=== PATIENT | female | born 1990 | race Caucasian/White ===

== ENCOUNTER 2021-08-04 09:08 | Outpatient (CLI) | payer OTHER ==
[2021-08-04 10:20] LABS: BASOPHILS % (AUTO) 0.3 % (0.0-2.0); EOSINOPHILS # (AUTO) 0.2 K/uL (0.0-0.4); EOSINOPHILS % (AUTO) 2.1 % (0.0-4.0); HEMATOCRIT 33.7 % (36-48); HEMOGLOBIN 11.3 g/dL (12.0-16.0); LYMPHOCYTES # (AUTO) 2.2 K/uL (1.0-5.5); LYMPHOCYTES % (AUTO) 25.4 % (20.5-51.5); MEAN CORPUSCULAR HEMOGLOBIN 29 pg (27-31); MEAN CORPUSCULAR HGB CONC 33 % (32-36); MEAN CORPUSCULAR VOLUME 86 fL (79.0-98.0); MONOCYTES # (AUTO) 0.7 K/uL (0.0-1.0); NEUTROPHILS # (AUTO) 5.6 K/uL (1.8-7.7); NEUTROPHILS % (AUTO) 64.2 % (40.0-70.0); PLATELET COUNT (AUTO) 255 K/uL (130-430); RED BLOOD CELL COUNT(AUTO) 3.94 MIL/uL (4.2-6.2); RED CELL DISTRIBUTION WIDTH 14.1 % (9.0-15.0); WHITE BLOOD COUNT (AUTO) 8.7 K/uL (4.8-10.8)
== END 2021-08-04 19:29 | disposition home or self-care (01) ==
LOC: SLB 09:08
PROVIDERS: ATTEND Specialist
DX: Z34.92 Encounter for supervision of normal pregnancy, unspecified, second trimester (principal); Z3A.00 Weeks of gestation of pregnancy not specified
CPT/HCPCS: 36415; 84443; 85025; 86592; 86886; 86900; 86901; 87086

== ENCOUNTER 2021-10-29 08:33 | Outpatient (CLI) | payer OTHER ==
[2021-10-29 09:36] LABS: BASOPHILS % (AUTO) 0.5 % (0.0-2.0); EOSINOPHILS # (AUTO) 0.2 K/uL (0.0-0.4); EOSINOPHILS % (AUTO) 1.8 % (0.0-4.0); HEMATOCRIT 32.4 % (36-48); LYMPHOCYTES # (AUTO) 2.4 K/uL (1.0-5.5); LYMPHOCYTES % (AUTO) 26.8 % (20.5-51.5); MEAN CORPUSCULAR HEMOGLOBIN 30 pg (27-31); MEAN CORPUSCULAR HGB CONC 34 % (32-36); MEAN CORPUSCULAR VOLUME 88 fL (79.0-98.0); MONOCYTES # (AUTO) 0.8 K/uL (0.0-1.0); MONOCYTES % (AUTO) 8.9 % (1.7-9.3); NEUTROPHILS # (AUTO) 5.5 K/uL (1.8-7.7); PLATELET COUNT (AUTO) 250 K/uL (130-430); RED BLOOD CELL COUNT(AUTO) 3.71 MIL/uL (4.2-6.2); RED CELL DISTRIBUTION WIDTH 12.3 % (9.0-15.0); WHITE BLOOD COUNT (AUTO) 8.8 K/uL (4.8-10.8)
[2021-10-30 10:09] LABS: RUBELLA AB, IgG 1.94 index (Immune >0.99)
[2021-10-30 11:08] LABS: HEPATITIS B SURFACE AG Negative (Negative)
== END 2021-10-29 19:48 | disposition home or self-care (01) ==
LOC: SLB 08:33
PROVIDERS: ATTEND Pathology Anatomic Pathology & Clinical Pathology
DX: Z34.83 Encounter for supervision of other normal pregnancy, third trimester (principal); Z36.9 Encounter for antenatal screening, unspecified; Z3A.00 Weeks of gestation of pregnancy not specified
CPT/HCPCS: 36415; 82947; 85025; 86592; 86762; 87340

== ENCOUNTER 2021-12-30 07:42 | Inpatient (IN) | payer OTHER ==
[~2021-12-30] VITALS: Ht 162.6 cm; Wt 75.7 kg
[2021-12-30] MEDS ORDERED: CEFAZOLIN 2 GM IVPB PREMIX 50 ML IV ONE (08:15)
[2021-12-30] MEDS ORDERED: LR 1,000 ML IV SCH ×2 (08:15→09:30)
[2021-12-30 08:51] LABS: BASOPHILS # (AUTO) 0.1 K/uL (0.0-0.2); BASOPHILS % (AUTO) 0.5 % (0.0-2.0); EOSINOPHILS # (AUTO) 0.2 K/uL (0.0-0.4); EOSINOPHILS % (AUTO) 1.3 % (0.0-4.0); HEMATOCRIT 32.1 % (36-48); HEMOGLOBIN 10.7 g/dL (12.0-16.0); LYMPHOCYTES % (AUTO) 24.7 % (20.5-51.5); MEAN CORPUSCULAR HEMOGLOBIN 28 pg (27-31); MEAN CORPUSCULAR HGB CONC 33 % (32-36); MEAN CORPUSCULAR VOLUME 84 fL (79.0-98.0); MONOCYTES # (AUTO) 0.9 K/uL (0.0-1.0); MONOCYTES % (AUTO) 7.8 % (1.7-9.3); NEUTROPHILS # (AUTO) 7.9 K/uL (1.8-7.7); NEUTROPHILS % (AUTO) 65.7 % (40.0-70.0); PLATELET COUNT (AUTO) 259 K/uL (130-430); RED BLOOD CELL COUNT(AUTO) 3.82 MIL/uL (4.2-6.2); RED CELL DISTRIBUTION WIDTH 13.4 % (9.0-15.0); WHITE BLOOD COUNT (AUTO) 12.1 K/uL (4.8-10.8)
[2021-12-30 09:20] LABS: BILIRUBIN,URINE NEGATIVE (NEGATIVE); BLOOD, URINE NEGATIVE (NEGATIVE); CLARITY/URINE CLOUDY (CLEAR); COLOR,URINE YELLOW (YELLOW); GLUCOSE,URINE NEGATIVE (NEGATIVE); KETONES,URINE NEGATIVE (NEGATIVE); LEUKOCYTE ESTERASE ,URINE 1+ (NEGATIVE); NITRITE, URINE NEGATIVE (NEGATIVE); PROTEIN URINE NEGATIVE (NEGATIVE); UROBILINOGEN,URINE 0.2 (0.2-1.0)
[2021-12-30] MEDS ORDERED: NS IRRIG SOLN 1000 ML IR ONE (09:25)
[2021-12-30] MEDS ORDERED: BUPIVACAINE /PF 0.75% 10 ML VIAL INJ ONE (09:25)
[2021-12-30] MEDS ORDERED: OXYTOCIN 10 UNIT/ML VIAL ONE (09:25)
[2021-12-30] MEDS ORDERED: MORPHINE SULFATE 10MG/10ML PF AMP ONE (09:25)
[2021-12-30] MEDS ORDERED: LR 1,000 ML IV.SOLN IV ONE (09:25)
[2021-12-30] MEDS ORDERED: LANOLIN 7 GM OINT. TP PRN (09:30)
[2021-12-30] MEDS ORDERED: DIPH-TET-PERTUS Vaccine 0.5 ML VIAL (ADACEL) I.M. PRN (09:30)
[2021-12-30] MEDS ORDERED: BISACODYL 10 MG/SUPPOSITORY RC PRN (09:30)
[2021-12-30] MEDS ORDERED: ANUSOL 1 EA SUPP.RECT (PREPARATION H) RC PRN (09:30)
[2021-12-30] MEDS ORDERED: RHO(D) IMMUNE GLOBULIN/MALTOSE 1500 UNITS/1.3 ML (WINHRO) IM PRN (09:30)
[2021-12-30] MEDS ORDERED: MEASLES,MUMPS&RUBELLA VACC/PF 12500 UNIT/0.5 ML VIAL SUBQ PRN (09:30)
[2021-12-30] MEDS ORDERED: OXYTOCIN/0.9 % SODIUM CHLORIDE 1,000 ML IV ONE (09:30)
[2021-12-30] MEDS ORDERED: MORPHINE SULFATE 10MG/10ML PF AMP SP SCH (10:45)
[2021-12-30] MEDS ORDERED: KETOROLAC TROMETHAMINE 60 MG/2 ML VIAL IM PRN (10:45)
[2021-12-30] MEDS ORDERED: ONDANSETRON HCL 4 MG/2 ML VIAL IVP PRN (10:45)
[2021-12-30 10:56] LABS: BACTERIA,URINE FEW /HPF (None Seen); RBC,URINE 0-3 /HPF (0-3)
[2021-12-30] MEDS ORDERED: KETOROLAC TROMETHAMINE 30 MG VIAL ONE (11:05)
[2021-12-30] MEDS ORDERED: CEFAZOLIN 1 GM IVPB PREMIX 50 ML IV SCH (12:00)
[2021-12-30 12:44] VITALS: BP_SYST 129
[2021-12-30] MEDS: CEFAZOLIN 1 GM IVPB PREMIX 50 ML IV SCH (17:54)
[2021-12-30] MEDS ORDERED: TEMAZEPAM 15 MG CAPSULE PO PRN (21:00)
[2021-12-30] MEDS: OXYTOCIN/0.9 % SODIUM CHLORIDE 1,000 ML IV SCH (21:04)
[2021-12-30] MEDS: SENNOSIDES/DOCUSATE SODIUM 1 TAB TABLET(SENOKOT-S) PO SCH (21:05)
[2021-12-30] MEDS: DOCUSATE SODIUM 100 MG CAPSULE PO SCH (21:05)
[2021-12-30] MEDS: ACETAMINOPHEN I.V. 1000 MG 100 ML IV SCH (21:06)
[2021-12-31] MEDS: KETOROLAC TROMETHAMINE 30 MG VIAL IVP SCH ×4 (00:17→18:39)
[2021-12-31] MEDS: CEFAZOLIN 1 GM IVPB PREMIX 50 ML IV SCH (00:18)
[2021-12-31] MEDS: ACETAMINOPHEN I.V. 1000 MG 100 ML IV SCH ×3 (03:20→16:18)
[2021-12-31] MEDS ORDERED: CEFAZOLIN 1 GM IVPB PREMIX 50 ML IV ONE (06:02)
[2021-12-31] MEDS: OXYTOCIN/0.9 % SODIUM CHLORIDE 1,000 ML IV SCH (06:20)
[2021-12-31 06:58] LABS: BASOPHILS % (AUTO) 0.4 % (0.0-2.0); EOSINOPHILS # (AUTO) 0.1 K/uL (0.0-0.4); EOSINOPHILS % (AUTO) 1.4 % (0.0-4.0); HEMATOCRIT 25.8 % (36-48); HEMOGLOBIN 8.8 g/dL (12.0-16.0); LYMPHOCYTES # (AUTO) 1.7 K/uL (1.0-5.5); LYMPHOCYTES % (AUTO) 18.5 % (20.5-51.5); MEAN CORPUSCULAR HEMOGLOBIN 29 pg (27-31); MEAN CORPUSCULAR HGB CONC 34 % (32-36); MEAN CORPUSCULAR VOLUME 84 fL (79.0-98.0); MONOCYTES # (AUTO) 0.6 K/uL (0.0-1.0); MONOCYTES % (AUTO) 6.5 % (1.7-9.3); NEUTROPHILS # (AUTO) 6.9 K/uL (1.8-7.7); NEUTROPHILS % (AUTO) 73.2 % (40.0-70.0); PLATELET COUNT (AUTO) 197 K/uL (130-430); RED BLOOD CELL COUNT(AUTO) 3.08 MIL/uL (4.2-6.2); RED CELL DISTRIBUTION WIDTH 13.4 % (9.0-15.0); WHITE BLOOD COUNT (AUTO) 9.4 K/uL (4.8-10.8)
[2021-12-31] MEDS: DOCUSATE SODIUM 100 MG CAPSULE PO SCH ×2 (10:45→21:44)
[2021-12-31] MEDS: SIMETHICONE 80 MG TAB.CHEW PO PRN ×2 (10:46→21:44)
[2021-12-31] MEDS ORDERED: OXYCODONE/ACETAMINOPHEN 5-325 TABLET PO PRN (21:30)
[2021-12-31] MEDS ORDERED: OXYCODONE/ACETAMINOPHEN *10*mg/325 mg TABLET PO PRN (21:30)
[2021-12-31] MEDS ORDERED: HYDROcodone/ACETAMIN 5-325 MG TAB (NORCO/ VICODIN) PO PRN (21:30)
[2021-12-31] MEDS: SENNOSIDES/DOCUSATE SODIUM 1 TAB TABLET(SENOKOT-S) PO SCH (21:44)
[2022-01-01] MEDS: IBUPROFEN 600 MG TABLET PO SCH ×4 (00:06→18:05)
[2022-01-01] MEDS: SIMETHICONE 80 MG TAB.CHEW PO PRN ×3 (06:18→18:05)
[2022-01-01] MEDS: DOCUSATE SODIUM 100 MG CAPSULE PO SCH (08:49)
[2022-01-01] MEDS ORDERED: OXYC-128 PO (17:26)
== END 2022-01-01 18:45 | disposition home or self-care (01) | DRG 787 ==
LOC: SPU 07:42
PROVIDERS: ADMIT Specialist; ATTEND Specialist
PROC: 10D00Z1 Extraction of Products of Conception, Low, Open Approach (ICD-10-PCS; principal; 2021-12-31)
DX: O32.1XX0 Maternal care for breech presentation, not applicable or unspecified (principal); O41.03X0 Oligohydramnios, third trimester, not applicable or unspecified; Z3A.38 38 weeks gestation of pregnancy; Z37.0 Single live birth; Z20.822 Contact with and (suspected) exposure to COVID-19
CPT/HCPCS: 36415; 81000; 85025; 86592; 86886; 86900; 86901; 90715; 94760; J0131; J0690; J1885; J2274; J2590; J3490; J7120

== ENCOUNTER 2022-03-19 15:40 | Emergency (ER) | payer OTHER ==
[~2022-03-19] VITALS: Ht 160 cm; Wt 67.6 kg
[~2022-03-19 15:40] MED LIST: OXYC-128 PO
[2022-03-19 16:28] VITALS: BP_SYST 121
--- NOTE | 2022-03-19 18:00 | NUR ---
Patient to ER bed CH1 to gown for evaluation. Side rails up.
--- NOTE | 2022-03-19 18:02 | NUR ---
ER DR. JULIO EXAMINING PT
--- NOTE | 2022-03-19 18:10 | NUR ---
PT CAME IN FROM HOME, AVULSION TO RIGHT INDEX FINGER WHILE COOKING PRIOR TO ARRIVAL. BLEEDING CONTROLLED WITH GAUZE. PT IS AMBULATORY, AAOX4, VSS
[2022-03-19] MEDS ORDERED: BACITRACIN 1 GM OINT TP ONE (18:30)
[2022-03-19 19:12] VITALS: BP_SYST 121
[2022-03-19] MEDS ORDERED: DIPHTH,PERTUSS(ACELL),TET VAC 0.5 ML VIAL (Tdap) I.M. ONE ×2 (19:12→19:15)
--- NOTE | 2022-03-19 19:13 | NUR ---
Patient given written and verbal discharge instructions and verbalizes understanding. ER MD discussed with patient the results and treatment provided. Patient in stable condition. ID arm band removed. NO Rx given. Patient educated on pain management and to follow up with PMD. Pain Scale 0/10. Opportunity for questions provided and answered. Medication side effect fact sheet provided.
== END 2022-03-19 19:12 | disposition home or self-care (01) ==
LOC: SED 15:40
DX: S61.210A Laceration without foreign body of right index finger without damage to nail, initial encounter (principal); Z91.012 Allergy to eggs; Z91.013 Allergy to seafood; Z88.8 Allergy status to other drugs, medicaments and biological substances; Z79.899 Other long term (current) drug therapy; W26.0XXA Contact with knife, initial encounter; Y93.89 Activity, other specified; Y92.89 Other specified places as the place of occurrence of the external cause; Y99.8 Other external cause status
CPT/HCPCS: 90715; 99283

== ENCOUNTER 2023-07-04 14:34 | Outpatient (CLI) | payer OTHER ==
[2023-07-04 15:31] LABS: BASOPHILS # (AUTO) 0.1 K/uL (0.0-0.2); BASOPHILS % (AUTO) 0.7 % (0.0-2.0); EOSINOPHILS # (AUTO) 0.2 K/uL (0.0-0.4); HEMATOCRIT 36.6 % (36-48); HEMOGLOBIN 12.7 g/dL (12.0-16.0); LYMPHOCYTES % (AUTO) 23.3 % (20.5-51.5); MEAN CORPUSCULAR HEMOGLOBIN 30 pg (27-31); MEAN CORPUSCULAR HGB CONC 35 % (32-36); MEAN CORPUSCULAR VOLUME 85 fL (79.0-98.0); MONOCYTES # (AUTO) 0.5 K/uL (0.0-1.0); MONOCYTES % (AUTO) 5.8 % (1.7-9.3); NEUTROPHILS # (AUTO) 5.8 K/uL (1.8-7.7); NEUTROPHILS % (AUTO) 68.2 % (40.0-70.0); PLATELET COUNT (AUTO) 279 K/uL (130-430); RED CELL DISTRIBUTION WIDTH 14.1 % (9.0-15.0); WHITE BLOOD COUNT (AUTO) 8.6 K/uL (4.8-10.8)
[2023-07-05 07:11] LABS: RUBELLA AB, IgG 2.36 index (Immune >0.99)
[2023-07-06 03:07] LABS: HEPATITIS B SURFACE AG Negative (Negative)
== END 2023-07-04 19:02 | disposition home or self-care (01) ==
LOC: SLB 14:34
PROVIDERS: ATTEND Specialist
DX: Z34.02 Encounter for supervision of normal first pregnancy, second trimester (principal); Z3A.00 Weeks of gestation of pregnancy not specified
CPT/HCPCS: 36415; 85025; 86592; 86762; 86886; 86900; 86901; 87340